=== PATIENT | female | born 1995 | race American Indian/Alaskan Native ===

== ENCOUNTER 2019-04-01 06:03 | Emergency (ER) | payer OTHER ==
[2019-04-01] MEDS ORDERED: TETRACAINE 0.5% OU ONE (07:38)
[2019-04-01] MEDS ORDERED: IBUPROFEN PO ONE (07:39)
[2019-04-01] MEDS ORDERED: FLEXERIL PO ONE (07:39)
[2019-04-01] MEDS ORDERED: ERYTHROMYCIN OPHTH OINT OU ONE (08:30)
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
[2019-04-01 10:40] VITALS: BP 130/89
--- NOTE | 2019-04-01 11:35 | XRay Report ---
LEFT WRIST: Pain, swelling. Routine views demonstrate the carpal bones to be well mineralized with well preserved bony mineralization and interosseous joint spaces. The carpal and adjacent articular bones have normal contours. The surrounding soft tissues are unremarkable. IMPRESSION: Normal study.
== END 2019-04-01 10:40 | disposition home or self-care (01) ==
LOC: ED 06:03
DX: M79.18 Myalgia, other site (principal); H10.9 Unspecified conjunctivitis; M25.532 Pain in left wrist; V49.49XA Driver injured in collision with other motor vehicles in traffic accident, initial encounter; Y93.89 Activity, other specified; Y92.89 Other specified places as the place of occurrence of the external cause; Y99.8 Other external cause status